=== PATIENT | female | born 1965 | race Two or more races ===

== ENCOUNTER 2017-11-02 18:51 | Inpatient (IN) | payer MEDICAID ==
[~2017-11-02] VITALS: Ht 165.1 cm; Wt 74.3 kg
[~2017-11-02 18:51] MED LIST: MET25T PO
[2017-11-02 19:09] LABS: Eosinophils # (auto) 0.4 uL; Hemoglobin 11.2 g/dL (12.2-16.2); Lymphocytes # (auto) 2.9 uL; Mean Corpuscular Volume 72.7 fL (80.0-100.0); Nucleated Red Blood Cells % 0.1 %
[2017-11-02 19:11] LABS: Basophils # (auto) 0.1 uL; Basophils % (auto) 1.6 % (0.0-2.0); Eosinophils % (auto) 5.5 % (0.0-7.0); Hematocrit 35.4 % (36.0-46.0); Lymphocytes % (auto) 38.1 % (10.0-50.0); Mean Corpuscular Hemoglobin 23.1 pg (28.0-32.0); Mean Corpuscular Hgb Conc. 31.7 g/dL (32.0-36.0); Monocytes # (auto) 0.8 uL; Monocytes % (auto) 10.1 % (0.0-12.0); Neutrophils # (auto) 3.4 uL; Neutrophils % (auto) 44.7 % (37.0-80.0); Platelet Count (auto) 485 10^3/uL (140-450); Red Blood Cells 4.87 10^6/uL (4.0-5.20); Red Cell Distribution Width 17.3 % (11.8-14.3); White Blood Cell 7.6 10^3/uL (4.4-10.8)
[2017-11-02 19:33] LABS: Alanine Aminotransferase 24 U/L (13-56); Albumin 3.8 g/dL (3.4-5.0); Alkaline Phosphatase 114 U/L (45-117); Anion Gap 8 (5-15); Aspartate Aminotransferase 23 U/L (15-37); Bilirubin, Total 0.2 mg/dL (0.2-1.0); Blood Urea Nitrogen 8 mg/dL (7-18); Calcium 8.7 mg/dL (8.5-10.1); Carbon Dioxide 23 mmol/L (21-32); Chloride 108 mmol/L (98-107); GFR African American 108 mL/min; GFR Non-African American 89 mL/min; Glucose 109 mg/dL (74-106); Magnesium 2.4 mg/dL (1.6-2.6); Potassium 4.4 mmol/L (3.5-5.1); Sodium 139 mmol/L (136-145); Total Protein 8.4 g/dL (6.4-8.2)
[2017-11-02] MEDS ORDERED: METOPROLOL TARTRATE 1MG/1ML-5ML VIAL IV ONE ×2 (19:39→19:45)
[2017-11-02] MEDS ORDERED: LABETALOL HCL 200 MG TAB PO ONE (20:15)
[2017-11-02 20:44] LABS: Urine Bacteria NONE SEEN /hpf (None Seen); Urine Blood Negative /uL (Negative); Urine Specific Gravity 1.006 (1.001-1.035); Urine WBC <1 /hpf (0 - 5)
[2017-11-02] MEDS ORDERED: DIGOXIN (250MCG/ML) 2 ML AMPULE IV ONE (21:45)
[2017-11-02] MEDS ORDERED: SODIUM CHLORIDE 0.9% 1,000 ML IV ONE (21:45)
[2017-11-02] MEDS ORDERED: LORazepam 2MG/ML-1ML VIAL IV ONE (23:15)
[2017-11-02] MEDS ORDERED: AMIODARONE HCL 150 MG in D5W 5% 100 ML IV ONE (23:15)
[2017-11-02] MEDS ORDERED: AMIODARONE HCL 900 MG in DEXTROSE 500 ML IV SCH (23:20)
[2017-11-02] MEDS ORDERED: AMIODARONE HCL (50 MG/ ML) 3 ML VIAL IV ONE ×2 (23:29→23:32)
[2017-11-03] MEDS: SODIUM CHLORIDE 0.9% 1,000 ML IV SCH ×2 (00:24→15:02)
[2017-11-03] MEDS ORDERED: HYDROcodone-ACET 5/325MG TAB PO PRN (00:30)
[2017-11-03] MEDS ORDERED: METOPROLOL TARTRATE 25 MG TAB PO ONE (00:30)
[2017-11-03] MEDS ORDERED: ALBUTEROL SULF 2.5 MG/0.5ML(0.5%) NEB SOLN NEB PRN (00:30)
[2017-11-03] MEDS ORDERED: NITROGLYCERIN 0.4 MG SL TAB SL PRN (00:30)
[2017-11-03] MEDS ORDERED: MORPHINE SULFATE 8mg/ml INJ SDV IV PRN (00:30)
[2017-11-03] MEDS ORDERED: ACETAMINOPHEN 325 MG TAB PO PRN (00:30)
[2017-11-03] MEDS ORDERED: TEMAZEPAM 15 MG CAP PO PRN (00:30)
[2017-11-03] MEDS ORDERED: DILTIAZEM HCL 25 MG/5 ML VIAL IV ONE (01:00)
[2017-11-03 01:41] VITALS: BP_SYST 120
[2017-11-03] MEDS ORDERED: THIAMINE HCL 100 MG/ML 2ML VIAL IV ONE (02:15)
[2017-11-03] MEDS: AMIODARONE HCL 900 MG in DEXTROSE 500 ML IV SCH ×2 (05:30→23:08)
[2017-11-03] MEDS: METOPROLOL TARTRATE 25 MG TAB PO SCH ×2 (09:31→21:47)
[2017-11-03] MEDS: ASPirin 81 mg TAB PO SCH (09:31)
[2017-11-03] MEDS: FAMOTIDINE 20 MG TAB PO SCH ×2 (09:31→21:46)
[2017-11-03] MEDS: ENOXAPARIN SOD 40 MG/0.4 ML SYRINGE SC SCH (09:32)
[2017-11-03] MEDS ORDERED: METOPROLOL TARTRATE 25 MG TAB PO SCH (10:00)
[2017-11-03 14:53] VITALS: BP 110/76
[2017-11-03] MEDS ORDERED: IOHEXOL 350 MG/ML 100ML IJ ONE (15:32)
[2017-11-03 20:09] VITALS: BP 123/74
[2017-11-04] VITALS (7 sets, daily range): BP systolic 111–124; BP diastolic 62–80
[2017-11-04] MEDS: SODIUM CHLORIDE 0.9% 1,000 ML IV SCH ×2 (04:24→17:03)
[2017-11-04 05:13] LABS: Basophils # (auto) 0.1 uL; Basophils % (auto) 1.3 % (0.0-2.0); Eosinophils # (auto) 0.3 uL; Hemoglobin 8.9 g/dL (12.2-16.2); Lymphocytes # (auto) 1.9 uL; Monocytes # (auto) 0.5 uL; Neutrophils # (auto) 3.1 uL; Red Cell Distribution Width 16.7 % (11.8-14.3); White Blood Cell 5.9 10^3/uL (4.4-10.8)
[2017-11-04 05:16] LABS: Eosinophils % (auto) 4.4 % (0.0-7.0); Hematocrit 28.3 % (36.0-46.0); Mean Corpuscular Hgb Conc. 31.5 g/dL (32.0-36.0); Mean Corpuscular Volume 72.6 fL (80.0-100.0); Monocytes % (auto) 9.2 % (0.0-12.0); Neutrophils % (auto) 53.1 % (37.0-80.0); Nucleated Red Blood Cells % 0.2 %; Platelet Count (auto) 338 10^3/uL (140-450)
[2017-11-04 05:19] LABS: Mean Corpuscular Hemoglobin 23.2 pg (28.0-32.0)
[2017-11-04 05:39] LABS: Albumin 3.1 g/dL (3.4-5.0); BUN/Creatinine Ratio 13.2; Bilirubin, Total 0.3 mg/dL (0.2-1.0); Calcium 7.9 mg/dL (8.5-10.1); Potassium 3.9 mmol/L (3.5-5.1); Total Protein 6.7 g/dL (6.4-8.2)
[2017-11-04] MEDS ORDERED: SODIUM FERR GLUC 62.5MG/5ML 125 MG in SODIUM CHL 0.9% 100 ML IV ONE (08:45)
[2017-11-04] MEDS: METOPROLOL TARTRATE 25 MG TAB PO SCH ×2 (09:44→21:44)
[2017-11-04] MEDS: ASPirin 81 mg TAB PO SCH (09:44)
[2017-11-04] MEDS: FAMOTIDINE 20 MG TAB PO SCH ×2 (09:44→21:43)
[2017-11-04] MEDS: ENOXAPARIN SOD 40 MG/0.4 ML SYRINGE SC SCH (09:45)
[2017-11-04 10:29] LABS: % Iron Saturation 7.1 % (15-50)
[2017-11-05] MEDS: SODIUM CHLORIDE 0.9% 1,000 ML IV SCH ×2 (05:44→23:01)
[2017-11-05 05:52] VITALS: BP 125/72
[2017-11-05 08:00] VITALS: BP 116/83
[2017-11-05 09:00] VITALS: BP 116/83
[2017-11-05] MEDS: FAMOTIDINE 20 MG TAB PO SCH ×2 (10:04→23:01)
[2017-11-05] MEDS: ENOXAPARIN SOD 40 MG/0.4 ML SYRINGE SC SCH (10:05)
[2017-11-05] MEDS: ASPirin 81 mg TAB PO SCH (10:05)
[2017-11-05] MEDS: METOPROLOL TARTRATE 25 MG TAB PO SCH (10:06)
[2017-11-05 12:37] VITALS: BP 109/64
[2017-11-05 16:45] VITALS: BP 110/72
[2017-11-05 22:00] VITALS: BP 117/72
[2017-11-05] MEDS: SOTALOL HCL 80 MG TAB PO SCH (23:08)
[2017-11-06 05:00] VITALS: BP 112/76
[2017-11-06 07:12] LABS: Basophils # (auto) 0.1 uL; Eosinophils # (auto) 0.2 uL; Hematocrit 31.5 % (36.0-46.0); Lymphocytes # (auto) 1.6 uL; Neutrophils # (auto) 3.9 uL
[2017-11-06 07:15] LABS: Basophils % (auto) 0.9 % (0.0-2.0); Eosinophils % (auto) 3.5 % (0.0-7.0); Hemoglobin 9.8 g/dL (12.2-16.2); Lymphocytes % (auto) 24.9 % (10.0-50.0); Mean Corpuscular Hemoglobin 22.9 pg (28.0-32.0); Mean Corpuscular Hgb Conc. 31.3 g/dL (32.0-36.0); Mean Corpuscular Volume 73.2 fL (80.0-100.0); Monocytes # (auto) 0.6 uL; Monocytes % (auto) 9.5 % (0.0-12.0); Neutrophils % (auto) 61.2 % (37.0-80.0); Nucleated Red Blood Cells % 0.2 %; Platelet Count (auto) 376 10^3/uL (140-450); Red Cell Distribution Width 16.8 % (11.8-14.3); White Blood Cell 6.3 10^3/uL (4.4-10.8)
[2017-11-06 07:29] LABS: BUN/Creatinine Ratio 16.9; Calcium 8.4 mg/dL (8.5-10.1)
[2017-11-06 09:00] VITALS: BP 107/62
[2017-11-06] MEDS: ASPirin 81 mg TAB PO SCH (09:51)
[2017-11-06] MEDS: FAMOTIDINE 20 MG TAB PO SCH (09:51)
[2017-11-06] MEDS: SOTALOL HCL 80 MG TAB PO SCH (09:51)
[2017-11-06] MEDS: SODIUM CHLORIDE 0.9% 1,000 ML IV SCH (09:52)
[2017-11-06] MEDS: ENOXAPARIN SOD 40 MG/0.4 ML SYRINGE SC SCH (09:52)
[2017-11-06 10:17] VITALS: BP 107/62
[2017-11-06 13:00] VITALS: BP 125/78
[2017-11-06 14:31] VITALS: BP 125/78
== END 2017-11-06 16:03 | disposition home or self-care (01) | DRG 201 ==
LOC: ER 18:51 → TELE 18:52 → DOU IN ICU 11-03 14:06 → TELE-WESTW 11-04 13:46
PROVIDERS: ADMIT Nurse Practitioner; ATTEND Internal Medicine
DX: I47.1 Supraventricular tachycardia (principal); E44.1 Mild protein-calorie malnutrition; I10 Essential (primary) hypertension; D50.9 Iron deficiency anemia, unspecified; Z68.27 Body mass index [BMI] 27.0-27.9, adult; F41.9 Anxiety disorder, unspecified; I48.92 Unspecified atrial flutter; J45.909 Unspecified asthma, uncomplicated; Z80.1 Family history of malignant neoplasm of trachea, bronchus and lung; Z82.49 Family history of ischemic heart disease and other diseases of the circulatory system; Z82.5 Family history of asthma and other chronic lower respiratory diseases
CPT/HCPCS: 36415; 71046; 71275; 80048; 80053; 81001; 82728; 83540; 83550; 83735; 83880; 84484; 85025; 85045; 85379; 87081; 93005; 93306; 94761; 96361; 96374; 96375; J7060